=== PATIENT | female | born 1955 | race Caucasian/White ===

== ENCOUNTER → 2021-07-08 15:31 | Outpatient (CLI) | payer MEDICARE, OTHER, SELFPAY ==
--- NOTE | 2021-07-08 | DI.MRI.S_ITS ---
PROCEDURE: MR PELVIS WO CON INDICATIONS: Unspecified disorder of synovium and tendon, left thigh TECHNIQUE: Noncontrast coronal and axial T1 spin echo and STIR through the bony pelvis. COMPARISON: [facility] Outside Film, MR, MR HIP LEFT WITHOUT CONTRAST, 06/17/2020, 15:00. FINDINGS: Image quality: Excellent. 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 Mild to moderate right hip joint osteoarthritic changes are seen. There is no marrow edema. No suspicious intraosseous lesion. No evidence of avascular necrosis of femoral head. No acute fracture or dislocation is seen. Tendons: The gluteus medius and minimus tendons appear intact, without associated muscle atrophy. The nearby proximal iliotibial band also appears intact. Fluid distending of the left trochanteric bursa is seen suggestive of bursitis. The iliopsoas tendon appears intact, without adjacent bursal fluid collections or evidence for impingement syndrome. The origin of the hamstring tendon is intact at the ischial tuberosity, as well as the associated sacrotuberous ligament. The straight and reflected heads of the rectus femoris muscle origin appear intact, as well as the conjoint tendon. Soft tissues: Visualized muscles demonstrate normal bulk and internal signal. No joint effusions. There is suggestion of moderate amount of pelvic free fluid. Extensive sigmoid diverticulosis is seen without CT evidence of acute diverticulitis. No gross bladder wall abnormality. Uterus and bilateral adnexa show no gross abnormality.. IMPRESSION: 1. 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 Mild to moderate right hip joint osteoarthritis. No marrow edema. No acute fracture or dislocation. No evidence of avascular necrosis of femoral head. 2. Fluid distension of left trochanteric bursa concerning for bursitis. No muscle or tendon signal abnormality is seen in pelvis and bilateral hip. 3. Moderate amount of pelvic free fluid suggest clinical correlation. Dictated by: Toni Cannon M.D. on 07/08/2021 at 16:58 Approved by: Toni Cannon M.D. on 07/08/2021 at 17:14
== END ==
PROVIDERS: PCP Family Medicine; Referring Provider Physical Medicine & Rehabilitation; Visit Provider Physical Medicine & Rehabilitation
DX: M67.952 Unspecified disorder of synovium and tendon, left thigh (principal); M16.11 Unilateral primary osteoarthritis, right hip; Z96.642 Presence of left artificial hip joint
CPT/HCPCS: 72195